=== PATIENT | male | born 1965 | race Caucasian/White ===

== ENCOUNTER 2016-07-17 13:25 | Emergency (ER) | payer OTHER ==
[~2016-07-17] VITALS: Ht 172.7 cm; Wt 68.1 kg
[~2016-07-17 13:25] MED LIST: AMITRIPTYLINE H25 MG PO; CLONAZEPAM0.5 MG PO; CLONAZEPAM1 MG PO; CYCLOBENZAPRINE10 MG PO; FISH OIL500 MG PO; GABAPENTIN300 MG PO; HYOSCYAMINE0.125 M2 PO; HYOSCYAMINE0.125 MG PO; KEPPRA750 MG PO; LAMICTAL25 MG PO; LAMOTRIGINE25 MG PO; LEVETIRACETAM500 MG PO; LEVETIRACETAM750 MG PO; MOBIC15 MG PO; MULTIPLE VITAM1 EAC1 PO; OMEPRAZOLE40 M1 PO; PAIN RELIEF EX500 MG PO; PANTOPRAZOLE SO40 MG PO; SUMATRIPTAN SUC50 MG PO; TERAZOSIN HCL2 MG PO; TESSALON200 MG PO; TOPIRAMATE50 MG PO; TYLENOL WITH C1 EACH PO; VITAMIN C1000 MG PO
[2016-07-17 13:34] VITALS: BP 119/86
[2016-07-17] MEDS ORDERED: LIDODERM 5% P1 PATCH TD (14:11)
[2016-07-17] MEDS ORDERED: ULTRAM50 MG PO (14:11)
== END 2016-07-17 14:26 | disposition home or self-care (01) ==
LOC: EME 13:25 → EXP 13:25
DX: M54.9 Dorsalgia, unspecified (principal); M62.830 Muscle spasm of back; W20.8XXA Other cause of strike by thrown, projected or falling object, initial encounter; Y99.0 Civilian activity done for income or pay; R56.9 Unspecified convulsions; K21.9 Gastro-esophageal reflux disease without esophagitis; Z72.0 Tobacco use
CPT/HCPCS: 99281; 99283

== ENCOUNTER 2017-07-04 22:07 | Observation (INO) | payer OTHER ==
[~2017-07-04] VITALS: Ht 172.7 cm; Wt 72.5 kg
[~2017-07-04 22:07] MED LIST changes: +LIDODERM 5% P1 PATCH TD; +ULTRAM50 MG PO
[2017-07-04 22:32] LABS: HEMATOCRIT 44.7 % (38.0-50.0); HEMOGLOBIN 16.1 G/DL (12.5-16.6); MCH 33.9 PG (29.0-34.0); MCV 94.1 FL (86-99); PLATELET COUNT 268 K/uL (156-360); RBC DIS.WIDTH-CV 11.8 % (11.8-14.6); RBC DIS.WIDTH-SD 41.1 % (39-53); RED BLOOD COUNT 4.75 M/uL (4.00-5.50); WHITE BLOOD COUNT 9.2 K/uL (4.1-10.2)
[2017-07-04 22:45] LABS: CHLORIDE 107 mEq/L (99-109); POTASSIUM 4.1 mEq/L (3.7-5.4); SODIUM 139 mEq/L (136-147)
[2017-07-04 22:47] LABS: GLUCOSE 106 mg/dL (70-99)
[2017-07-04 22:50] LABS: CREATININE 1.2 mg/dL (0.6-1.3); GFR ESTIMATE (CALCULATED) > 59 mL/min/ (58.99-99999)
[2017-07-04 22:51] LABS: UREA NITROGEN (BUN) 8 mg/dL (9-23)
[2017-07-04 22:55] LABS: TROP-I INTERPRETATION NEGATIVE; TROPONIN-I < 0.01 ng/mL (0.0-0.30)
[2017-07-04 23:24] LABS: PTT 32.4 SEC (25-37)
[2017-07-04 23:38] LABS: HDL CHOLESTEROL 34 MG/DL (Desirable>=40); LDL CHOLESTEROL 101 mg/dL (Desirable<100); NON-HDL CHOLESTEROL 164 mg/dL (Desirable<160); TOTAL CHOLESTEROL 198 mg/dL (Desirable<200); TRIGLYCERIDES 316 MG/DL (Normal: <150)
[2017-07-05 03:56] VITALS: BP 129/91
[2017-07-05 05:58] LABS: HEMATOCRIT 44.9 % (38.0-50.0); HEMOGLOBIN 15.8 G/DL (12.5-16.6); MCH 33.4 PG (29.0-34.0); MCHC 35.2 G/DL (30.0-36.0); MCV 94.9 FL (86-99); PLATELET COUNT 272 K/uL (156-360); RBC DIS.WIDTH-CV 11.9 % (11.8-14.6); RBC DIS.WIDTH-SD 41.5 % (39-53); RED BLOOD COUNT 4.73 M/uL (4.00-5.50); WHITE BLOOD COUNT 10.6 K/uL (4.1-10.2)
[2017-07-05 06:13] LABS: ALBUMIN 4.4 G/DL (3.2-4.8); ALKALINE PHOSPHATASE 72 IU/L (3-129); ALT (GPT) 26 IU/L (3-49); AST (GOT) 24 IU/L (2-34); CHLORIDE 107 MEQ/L (99-109); CREATININE 1.1 MG/DL (0.6-1.3); GFR ESTIMATE (CALCULATED) > 59 mL/min/ (58.99-99999); GLUCOSE 90 mg/dL (70-99); POTASSIUM 3.6 MEQ/L (3.7-5.4); SODIUM 141 MEQ/L (136-147); TOTAL BILIRUBIN 0.6 MG/DL (0.0-1.0); UREA NITROGEN (BUN) 9 mg/dL (9-23)
[2017-07-05 06:15] LABS: TROP-I INTERPRETATION NEGATIVE; TROPONIN-I < 0.01 ng/mL (0.0-0.30)
[2017-07-05 09:49] VITALS: BP 95/57
[2017-07-05 09:53] VITALS: BP 130/62
[2017-07-05 10:07] LABS: TROP-I INTERPRETATION NEGATIVE; TROPONIN-I < 0.01 ng/mL (0.0-0.30)
[2017-07-05 11:33] VITALS: BP 124/84
[2017-07-05] MEDS ORDERED: ASPIR-LOW81 MG PO (13:00)
== END 2017-07-05 13:25 | disposition home or self-care (01) ==
LOC: EME 22:07 → ENPENDDIS 07-05 → EDOF 07-05 01:40 → 5WEST 07-05 01:40 → ENRESERV 07-05 01:42 → 5WEST 07-05 03:09
PROVIDERS: Emergency Medicine; Internal Medicine
DX: R07.9 Chest pain, unspecified (principal); R42 Dizziness and giddiness; R20.0 Anesthesia of skin; F12.10 Cannabis abuse, uncomplicated; G40.909 Epilepsy, unspecified, not intractable, without status epilepticus; G43.909 Migraine, unspecified, not intractable, without status migrainosus; Z86.73 Personal history of transient ischemic attack (TIA), and cerebral infarction without residual deficits; F17.210 Nicotine dependence, cigarettes, uncomplicated; D72.829 Elevated white blood cell count, unspecified
CPT/HCPCS: 70450; 71046; 80048; 80053; 80061; 84484; 85027; 85610; 85730; 93005; 99281; 99285; G0378; J7030